=== PATIENT | male | born 1930 | race Caucasian/White ===

== ENCOUNTER → 2016-06-29 | Outpatient (CLI) | payer MEDICARE, OTHER | LOC: CT 13:30 | DX: C85.80 Other specified types of non-Hodgkin lymphoma, unspecified site (principal); D61.818 Other pancytopenia; J98.11 Atelectasis; J90 Pleural effusion, not elsewhere classified; R59.0 Localized enlarged lymph nodes; D73.89 Other diseases of spleen | CPT/HCPCS: 70491; 71260; J7050; Q9962 ==

== ENCOUNTER → 2016-07-21 | Outpatient (CLI) | payer MEDICARE, OTHER | LOC: MRI 09:00 | DX: C85.10 Unspecified B-cell lymphoma, unspecified site (principal); D61.818 Other pancytopenia; D73.4 Cyst of spleen | CPT/HCPCS: 74183; A9577; J7050 ==